=== PATIENT | female | born 1930 | race African-American/Black ===

== ENCOUNTER 2017-06-01 14:53 | Inpatient (IN) | payer MEDICARE, MEDICAID ==
[~2017-06-01] VITALS: Ht 162.6 cm; Wt 72.1 kg
[~2017-06-01 14:53] MED LIST: ACET1TAB12 PO; ATOR-2 PO; DORZ10DR9 EACHEYE; FURO-152 PO; ISOS60TA4 PO; LORA10TA7 PO; LOSA100T14 PO; NIFE60TA64 PO; NOVOLOG SUBCUT; NVLG73 SQ; STOOL SOFTENER PO; TRAM50TA3 PO
[2017-06-01] MEDS ORDERED: ASPIRIN 81MG TABLET PO STA (16:12)
[2017-06-01 16:48] LABS: BASOPHILS % 0.3 % (0.0-2.0); EOSINOPHILS % 2.3 % (0.0-5.0); HEMATOCRIT. 33.6 % (36.0-48.0); HEMOGLOBIN. 10.8 g/dL (12.0-16.0); LYMPHOCYTES % 29.2 % (20.0-50.0); MEAN CORPUSCULAR HEMOGLOBIN 28.2 pg (28.0-32.0); MEAN CORPUSCULAR VOLUME 87.2 fL (81.0-99.0); MEAN PLATELET VOLUME 10.2 fl (7.4-10.4); NEUTROPHILS % 58.2 % (40.0-76.0); PLATELET 129 x1000/uL (130-400); RED BLOOD CELL COUNT 3.85 mill/uL (4.2-5.4); RED CELL DISTRIBUTION WIDTH 15.7 % (11.6-14.6)
[2017-06-01 16:55] LABS: CHLORIDE 106 mEq/L (98-107)
[2017-06-01 16:57] LABS: CARBON DIOXIDE 24 mEq/L (21-32); D-DIMER 1.56 mg/L FEU (<0.50); INR 2.5; PARTIAL THROMBOPLASTIN TIME 37.8 sec (23.4-31.0); PROTHROMBIN TIME 26.1 sec (9.4-11.6)
[2017-06-01 17:03] LABS: TROPONIN I < 0.02 ng/mL (0.00-0.04)
[2017-06-01] MEDS ORDERED: ENOXAPARIN 80MG/0.8ML SYR SUBCUT ONE (21:30)
[2017-06-01 22:34] VITALS: BP 180/67
[2017-06-01 22:35] VITALS: BP 180/67
[2017-06-01] MEDS ORDERED: LORATADINE 10MG TABLET PO PRN (23:00)
[2017-06-01] MEDS ORDERED: ENOXAPARIN 40MG/0.4ML SYR SUBCUT SCH (23:00)
[2017-06-01] MEDS ORDERED: LORAZEPAM 2MG/ML CPJ IV PRN (23:00)
[2017-06-01] MEDS ORDERED: DEXTROSE 50% WATER 50ML SYRINGE IV PRN (23:15)
[2017-06-01] MEDS ORDERED: ACETAMINOPHEN WITH CODEINE 300/30MG TABLET PO PRN (23:15)
[2017-06-01] MEDS: SODIUM CHLORIDE 0.9% 1,000 ML IV SCH (23:43)
[2017-06-02] VITALS: BP 178/65
[2017-06-02] MEDS: CLONIDINE 0.1MG TABLET PO PRN (00:09)
[2017-06-02] MEDS: MORPHINE SULFATE 4 MG/ML CPJ (NOT FOR IM USE) IV PRN ×2 (00:09→20:10)
[2017-06-02] MEDS: ONDANSETRON HCL 4MG/2ML VIAL IV PRN (00:17)
[2017-06-02 04:00] VITALS: BP 143/51
[2017-06-02] MEDS: BLOOD SUGAR DIAGNOSTIC STRIP TEST SCH ×4 (07:40→20:18)
[2017-06-02 08:00] VITALS: BP 128/50
[2017-06-02 08:09] LABS: CREATINE KINASE MB FRACTION 2.6 ng/mL (0.5-3.6); TROPONIN I 0.03 ng/mL (0.00-0.04)
[2017-06-02] MEDS: INSULIN LISPRO 100 UNITS/ML SUBCUT SCH ×4 (08:58→20:19)
[2017-06-02] MEDS: FUROSEMIDE 20MG TABLET PO SCH (08:58)
[2017-06-02] MEDS: ISOSORBIDE MONONITRATE 60MG TABLET SR 24HR PO SCH (08:59)
[2017-06-02] MEDS: MULTIVITAMINS,THER W-MINERALS TABLET PO SCH (08:59)
[2017-06-02] MEDS: THIAMINE HCL 100MG TABLET PO SCH (09:00)
[2017-06-02] MEDS: ASPIRIN 81MG EC TABLET PO SCH (09:00)
[2017-06-02] MEDS ORDERED: DORZOLAM/TIMOLOL 2.23/0.68% OPHTH DROPS 10ML EACHEYE SCH (09:00)
[2017-06-02] MEDS: NIFEDIPINE XL 60MG TAB PO SCH (09:00)
[2017-06-02] MEDS: DORZOLAMIDE 2% OPHTH 10 ML BOTTLE EACHEYE SCH ×2 (09:58→20:13)
[2017-06-02] MEDS: TIMOLOL MALEATE 0.5% OPHTH DROPS 5ML EACHEYE SCH ×2 (09:58→20:13)
[2017-06-02] MEDS: LOSARTAN POTASSIUM 100 MG TABLET PO SCH (10:04)
[2017-06-02 12:00] VITALS: BP 159/61
[2017-06-02 12:38] LABS: CARBON DIOXIDE 27 mEq/L (21-32); CHLORIDE 107 mEq/L (98-107)
[2017-06-02 16:00] VITALS: BP 166/48
[2017-06-02 16:15] LABS: CREATINE KINASE 118 IU/L (26-192); CREATINE KINASE MB FRACTION 2.4 ng/mL (0.5-3.6); TROPONIN I < 0.02 ng/mL (0.00-0.04)
[2017-06-02] MEDS: SODIUM CHLORIDE 0.9% 1,000 ML IV SCH (19:00)
[2017-06-02 20:00] VITALS: BP 163/57
[2017-06-02] MEDS: ATORVASTATIN CALCIUM 40MG TABLET PO SCH (20:13)
[2017-06-03] VITALS: BP 140/58
[2017-06-03 04:00] VITALS: BP 126/65
[2017-06-03] MEDS: BLOOD SUGAR DIAGNOSTIC STRIP TEST SCH ×4 (06:40→20:56)
[2017-06-03] MEDS: MORPHINE SULFATE 4 MG/ML CPJ (NOT FOR IM USE) IV PRN (06:46)
[2017-06-03 08:00] VITALS: BP 209/96
[2017-06-03] MEDS: INSULIN LISPRO 100 UNITS/ML SUBCUT SCH ×4 (08:10→22:57)
[2017-06-03] MEDS: DORZOLAMIDE 2% OPHTH 10 ML BOTTLE EACHEYE SCH ×2 (09:17→20:46)
[2017-06-03] MEDS: TIMOLOL MALEATE 0.5% OPHTH DROPS 5ML EACHEYE SCH ×2 (09:17→20:46)
[2017-06-03] MEDS: NIFEDIPINE XL 60MG TAB PO SCH (09:18)
[2017-06-03] MEDS: ASPIRIN 81MG EC TABLET PO SCH (09:19)
[2017-06-03] MEDS: LOSARTAN POTASSIUM 100 MG TABLET PO SCH (09:19)
[2017-06-03] MEDS: THIAMINE HCL 100MG TABLET PO SCH (09:19)
[2017-06-03] MEDS: MULTIVITAMINS,THER W-MINERALS TABLET PO SCH (09:19)
[2017-06-03] MEDS: FUROSEMIDE 20MG TABLET PO SCH (09:19)
[2017-06-03] MEDS: ISOSORBIDE MONONITRATE 60MG TABLET SR 24HR PO SCH (09:19)
[2017-06-03 12:00] VITALS: BP 178/64
[2017-06-03 12:02] LABS: CLARITY URINE CLEAR (CLEAR); COLOR URINE YELLOW (YELLOW); GLUCOSE URINE NEGATIVE (NEGATIVE); KETONES URINE NEGATIVE (NEGATIVE); LEUKOCYTE ESTERASE URINE TRACE (NEGATIVE); NITRITE URINE NEGATIVE (NEGATIVE); OCCULT BLOOD URINE TRACE (NEGATIVE); PH URINE 6.5 (4.5-8.0); PROTEIN URINE NEGATIVE (NEGATIVE); SPECIFIC GRAVITY URINE 1.013 (1.005-1.030); UROBILINOGEN URINE 0.2 E.U./dL (0.2-1.0)
[2017-06-03] MEDS: HYDRALAZINE HCL 50MG TABLET PO SCH ×2 (13:00→20:46)
[2017-06-03 13:03] LABS: T4 FREE 0.93 ng/dL (0.76-1.46)
[2017-06-03] MEDS: SODIUM CHLORIDE 0.9% 1,000 ML IV SCH ×2 (15:00→18:42)
[2017-06-03 16:00] VITALS: BP 143/82
[2017-06-03 16:08] LABS: CREATINE KINASE MB FRACTION 3.5 ng/mL (0.5-3.6); TROPONIN I 0.22 ng/mL (0.00-0.04)
[2017-06-03 20:00] VITALS: BP 147/83
[2017-06-03] MEDS: METOPROLOL TARTRATE 25MG TABLET PO SCH (20:46)
[2017-06-03] MEDS: ATORVASTATIN CALCIUM 40MG TABLET PO SCH (20:49)
[2017-06-03 23:35] LABS: CREATINE KINASE MB FRACTION 2.9 ng/mL (0.5-3.6); TROPONIN I 0.2 ng/mL (0.00-0.04)
[2017-06-04] VITALS: BP 143/69
[2017-06-04 04:00] VITALS: BP 157/62
[2017-06-04] MEDS: MORPHINE SULFATE 4 MG/ML CPJ (NOT FOR IM USE) IV PRN (05:21)
[2017-06-04] MEDS: HYDRALAZINE HCL 50MG TABLET PO SCH ×2 (05:21→13:22)
[2017-06-04 06:07] LABS: BASOPHILS % 0.4 % (0.0-2.0); EOSINOPHILS % 2.5 % (0.0-5.0); HEMATOCRIT. 35.2 % (36.0-48.0); HEMOGLOBIN. 11.7 g/dL (12.0-16.0); LYMPHOCYTES % 26.2 % (20.0-50.0); MEAN CORPUSCULAR HEMOGLOBIN 28.8 pg (28.0-32.0); MEAN PLATELET VOLUME 9.3 fl (7.4-10.4); MONOCYTES % 12.8 % (2.0-8.0); NEUTROPHILS % 58.1 % (40.0-76.0); PLATELET 119 x1000/uL (130-400); RED BLOOD CELL COUNT 4.04 mill/uL (4.2-5.4); RED CELL DISTRIBUTION WIDTH 15.6 % (11.6-14.6)
[2017-06-04 07:26] LABS: CREATINE KINASE MB FRACTION 2.8 ng/mL (0.5-3.6); TROPONIN I 0.12 ng/mL (0.00-0.04)
[2017-06-04] MEDS: BLOOD SUGAR DIAGNOSTIC STRIP TEST SCH ×4 (07:28→21:08)
[2017-06-04 07:55] LABS: PHOSPHORUS 2.1 mg/dL (2.5-4.9)
[2017-06-04 08:00] VITALS: BP 200/86
[2017-06-04] MEDS: INSULIN LISPRO 100 UNITS/ML SUBCUT SCH ×4 (08:10→21:15)
[2017-06-04] MEDS: FUROSEMIDE 20MG TABLET PO SCH (08:58)
[2017-06-04] MEDS: ASPIRIN 81MG EC TABLET PO SCH (08:58)
[2017-06-04] MEDS: NIFEDIPINE XL 60MG TAB PO SCH (08:59)
[2017-06-04] MEDS: LOSARTAN POTASSIUM 100 MG TABLET PO SCH (08:59)
[2017-06-04] MEDS: MULTIVITAMINS,THER W-MINERALS TABLET PO SCH (08:59)
[2017-06-04] MEDS: THIAMINE HCL 100MG TABLET PO SCH (08:59)
[2017-06-04] MEDS: METOPROLOL TARTRATE 25MG TABLET PO SCH (09:09)
[2017-06-04] MEDS: DORZOLAMIDE 2% OPHTH 10 ML BOTTLE EACHEYE SCH ×2 (10:34→21:07)
[2017-06-04] MEDS: TIMOLOL MALEATE 0.5% OPHTH DROPS 5ML EACHEYE SCH ×2 (10:34→21:07)
[2017-06-04] MEDS: ONDANSETRON HCL 4MG/2ML VIAL IV PRN (11:29)
[2017-06-04 12:00] VITALS: BP 150/80
[2017-06-04 16:00] VITALS: BP 164/74
[2017-06-04] MEDS: CLONIDINE 0.1MG TABLET PO PRN (18:40)
[2017-06-04] MEDS: TRAMADOL 50MG TABLET PO PRN (19:46)
[2017-06-04 20:00] VITALS: BP 199/94
[2017-06-04] MEDS ORDERED: ACETAMINOPHEN 325MG TABLET PO PRN (20:45)
[2017-06-04] MEDS: ATORVASTATIN CALCIUM 40MG TABLET PO SCH (21:07)
[2017-06-04] MEDS: METOPROLOL TARTRATE 50MG TABLET PO SCH (21:07)
[2017-06-04] MEDS: HYDRALAZINE HCL 100MG TABLET PO SCH (21:07)
[2017-06-05] VITALS: BP 99/46
[2017-06-05 04:00] VITALS: BP 142/58
[2017-06-05] MEDS: HYDRALAZINE HCL 100MG TABLET PO SCH ×2 (06:38→13:25)
[2017-06-05] MEDS: SODIUM CHLORIDE 0.9% 1,000 ML IV SCH (06:42)
[2017-06-05] MEDS: CLONIDINE 0.1MG TABLET PO PRN (08:22)
[2017-06-05] MEDS: METOPROLOL TARTRATE 50MG TABLET PO SCH (08:23)
[2017-06-05] MEDS: MULTIVITAMINS,THER W-MINERALS TABLET PO SCH (08:23)
[2017-06-05] MEDS: THIAMINE HCL 100MG TABLET PO SCH (08:23)
[2017-06-05] MEDS: TRAMADOL 50MG TABLET PO PRN (08:24)
[2017-06-05] MEDS: NIFEDIPINE XL 60MG TAB PO SCH (08:24)
[2017-06-05] MEDS: FUROSEMIDE 20MG TABLET PO SCH (08:25)
[2017-06-05] MEDS: LOSARTAN POTASSIUM 100 MG TABLET PO SCH (08:25)
[2017-06-05] MEDS: INSULIN LISPRO 100 UNITS/ML SUBCUT SCH ×2 (08:28→13:34)
[2017-06-05] MEDS: BLOOD SUGAR DIAGNOSTIC STRIP TEST SCH ×2 (08:31→13:15)
[2017-06-05] MEDS: ASPIRIN 81MG EC TABLET PO SCH (08:37)
[2017-06-05 08:40] VITALS: BP 187/73
[2017-06-05] MEDS: TIMOLOL MALEATE 0.5% OPHTH DROPS 5ML EACHEYE SCH (08:52)
[2017-06-05] MEDS: DORZOLAMIDE 2% OPHTH 10 ML BOTTLE EACHEYE SCH (08:52)
[2017-06-05 12:00] VITALS: BP 135/56
[2017-06-05 14:28] VITALS: BP 135/56
[2017-06-05] MEDS ORDERED: METOPROLOL TARTRATE 100MG TABLET PO SCH (21:00)
[2017-06-05] MEDS ORDERED: NIFEDIPINE XL 60MG TAB PO SCH (21:00)
== END 2017-06-05 15:00 | disposition home or self-care (01) | DRG 198 ==
LOC: ER 14:53 → 7WST 19:18 → EDBEDREQTM 19:21 → EDBEDREQ 19:21 → ENRESERV 19:30
PROVIDERS: ADMIT Internal Medicine Nephrology; ATTEND Internal Medicine Nephrology
DX: I25.119 Atherosclerotic heart disease of native coronary artery with unspecified angina pectoris (principal); N17.9 Acute kidney failure, unspecified; E44.0 Moderate protein-calorie malnutrition; E11.9 Type 2 diabetes mellitus without complications; I48.0 Paroxysmal atrial fibrillation; E78.5 Hyperlipidemia, unspecified; I10 Essential (primary) hypertension; I25.2 Old myocardial infarction; E78.00 Pure hypercholesterolemia, unspecified; I35.0 Nonrheumatic aortic (valve) stenosis; Z79.01 Long term (current) use of anticoagulants; Z91.041 Radiographic dye allergy status; Z95.1 Presence of aortocoronary bypass graft; Z79.899 Other long term (current) drug therapy; Z79.4 Long term (current) use of insulin; Z68.27 Body mass index [BMI] 27.0-27.9, adult
CPT/HCPCS: 36415; 71010; 78582; 80048; 80053; 80061; 81001; 82550; 82553; 82962; 83036; 83690; 83735; 83880; 84100; 84439; 84443; 84484; 85025; 85379; 85610; 85730; 93005; 93306; 93970; 96372; 99285; A9558; J1650; J1815; J2270; J2405; J7030

== ENCOUNTER 2018-07-04 03:00 | Inpatient (IN) | payer MEDICARE, MEDICAID ==
[~2018-07-04] VITALS: Ht 167.6 cm; Wt 74.0 kg
[~2018-07-04 03:00] MED LIST changes: -NOVOLOG SUBCUT; -STOOL SOFTENER PO
[2018-07-04] MEDS ORDERED: NITROGLYCERIN OINT 1GM/INCH UDPKT TD ONE (03:15)
[2018-07-04 03:39] LABS: BASOPHILS % 0.7 % (0.0-2.0); EOSINOPHILS % 2.6 % (0.0-5.0); HEMATOCRIT. 33.4 % (36.0-48.0); HEMOGLOBIN. 10.7 g/dL (12.0-16.0); LYMPHOCYTES % 24.9 % (20.0-50.0); MEAN CORPUSCULAR HEMOGLOBIN 27.3 pg (28.0-32.0); MEAN CORPUSCULAR VOLUME 85.5 fL (81.0-99.0); MEAN PLATELET VOLUME 9.4 fl (7.4-10.4); MONOCYTES % 7.8 % (2.0-8.0); PLATELET 179 x1000/uL (130-400); RED BLOOD CELL COUNT 3.91 mill/uL (4.2-5.4)
[2018-07-04 03:40] LABS: CHLORIDE 108 mEq/L (98-107)
[2018-07-04 06:23] LABS: BG BASE EXCESS -1.2 mmol/L (-2.0-2.0); BG BILEVEL POS AIRWAY PRESSURE 15/5; BG CARBOXYHEMOGLOBIN 0.5 % (0.5-1.5); BG DEOXYHEMOGLOBIN 0.5 % (0.0-5.0); BG FRACTION INSPIRED OXYGEN 60; BG METHEMOGLOBIN 0.3 % (0.0-1.5); BG OXYGEN SATURATION 99.5 % (92.0-98.5); BG OXYHEMOGLOBIN 98.7 % (94.0-97.0); BG PCO2 48.8 mmHg (35.0-45.0); BG PH 7.328 (7.350-7.450); BG PO2 294.8 mmHg (75.0-100.0); BG PRESSURE SUPPORT 10; BG SAMPLE SITE LEFT RADIAL; BG TOTAL HEMOGLOBIN 10.7 g/dL (12.0-18.0); BG VENT MODE MASK - BIPAP; BG VENT RATE 18 set
[2018-07-04] MEDS ORDERED: DOCUSATE SODIUM 100MG CAPSULE PO PRN (07:00)
[2018-07-04] MEDS ORDERED: GUAIFENESIN 200MG/10ML SUGAR FREE UDC PO PRN (07:00)
[2018-07-04] MEDS ORDERED: LORAZEPAM 2MG/ML CPJ IV PRN (07:00)
[2018-07-04] MEDS ORDERED: IPRATROPIUM/ALBUTEROL 0.5-3(2.5)MG/3ML NEB INH PRN (07:00)
[2018-07-04] MEDS ORDERED: ACETAMINOPHEN 325MG TABLET PO PRN (07:00)
[2018-07-04] MEDS ORDERED: ENOXAPARIN 40MG/0.4ML SYR SUBCUT SCH (07:00)
[2018-07-04] MEDS ORDERED: MAGNESIUM/ALUMINUM HYDROXIDE/SIMETHICONE 30ML UDC PO PRN (07:00)
[2018-07-04] MEDS ORDERED: NA PHOS,M-B/NA PHOS,DI-BA ENEMA 118ML PR PRN (07:00)
[2018-07-04] MEDS ORDERED: DIPHENHYDRAMINE 50MG/ML VIAL IV PRN (07:00)
[2018-07-04] MEDS ORDERED: ONDANSETRON HCL 4MG/2ML INJ IV PRN (07:00)
[2018-07-04] MEDS: CLONIDINE 0.1MG TABLET PO PRN (10:40)
[2018-07-04] MEDS: HYDRALAZINE HCL 50MG TABLET PO SCH ×2 (14:00→21:09)
[2018-07-04 16:40] VITALS: BP 132/67
[2018-07-04 17:58] VITALS: BP 132/67
[2018-07-04] MEDS ORDERED: TRAV2.5D EACHEYE (18:10)
[2018-07-04] MEDS ORDERED: WARF6TAB48 MT (18:11)
[2018-07-04] MEDS ORDERED: DEXTROSE 50% WATER 50ML SYRINGE IV PRN (18:15)
[2018-07-04] MEDS ORDERED: INFLUENZA VIRUS VACCINE(AFLURIA) 0.5ML SYR IM ONE (18:15)
[2018-07-04] MEDS: ASPIRIN 81MG EC TABLET PO SCH (18:48)
[2018-07-04] MEDS: FUROSEMIDE 40MG/4ML VIAL IV SCH (18:48)
[2018-07-04 20:00] VITALS: BP 150/52
[2018-07-04] MEDS ORDERED: ENOXAPARIN 30MG/0.3ML SYR SUBCUT SCH (21:00)
[2018-07-04] MEDS: HYDROCODONE/ACETAMINOPHEN 5/325MG TABLET PO PRN (21:09)
[2018-07-04] MEDS: INSULIN LISPRO 100 UNITS/ML SUBCUT SCH (21:10)
[2018-07-04] MEDS: BLOOD SUGAR DIAGNOSTIC STRIP TEST SCH (21:10)
[2018-07-04 21:21] LABS: CREATINE KINASE MB FRACTION 2.3 ng/mL (0.5-3.6)
[2018-07-04] MEDS ORDERED: ENOXAPARIN 60MG/0.6ML SYR SUBCUT SCH (23:00)
[2018-07-04 23:41] LABS: *AMPHETAMINES SCREEN URINE NEGATIVE (NEGATIVE); *BARBITURATES SCREEN URINE NEGATIVE (NEGATIVE); *BENZODIAZEPINES SCREEN URINE NEGATIVE (NEGATIVE); *COCAINE SCREEN URINE NEGATIVE (NEGATIVE); METHADONE URINE SCREEN NEGATIVE (NEGATIVE); OPIATES URINE SCREEN NEGATIVE (NEGATIVE)
[2018-07-04 23:42] LABS: CANNABINOID URINE SCREEN NEGATIVE (NEGATIVE); PHENCYCLIDINE URINE SCREEN NEGATIVE (NEGATIVE)
[2018-07-05 00:01] VITALS: BP 176/72
[2018-07-05] MEDS: CLONIDINE 0.1MG TABLET PO PRN (00:08)
[2018-07-05 01:06] LABS: CREATINE KINASE MB FRACTION 2.3 ng/mL (0.5-3.6)
[2018-07-05] MEDS: IPRATROPIUM/ALBUTEROL 0.5-3(2.5)MG/3ML NEB HHN SCH ×4 (02:39→20:40)
[2018-07-05] MEDS: BUDESONIDE 0.5MG/2ML NEB HHN SCH ×2 (02:39→09:50)
[2018-07-05 04:00] VITALS: BP 162/77
[2018-07-05] MEDS: HYDRALAZINE HCL 50MG TABLET PO SCH ×3 (05:39→21:37)
[2018-07-05] MEDS: BLOOD SUGAR DIAGNOSTIC STRIP TEST SCH ×4 (06:25→21:38)
[2018-07-05] MEDS: HYDROCODONE/ACETAMINOPHEN 5/325MG TABLET PO PRN ×2 (07:28→14:19)
[2018-07-05 08:00] VITALS: BP 117/55
[2018-07-05] MEDS ORDERED: ENOXAPARIN 80MG/0.8ML SYR SUBCUT SCH (09:00)
[2018-07-05] MEDS: ASPIRIN 81MG EC TABLET PO SCH (09:38)
[2018-07-05] MEDS: FUROSEMIDE 40MG/4ML VIAL IV SCH (09:38)
[2018-07-05] MEDS: INSULIN LISPRO 100 UNITS/ML SUBCUT SCH ×4 (09:40→21:40)
[2018-07-05 10:26] LABS: INR 2.6; PROTHROMBIN TIME 25.6 sec (9.1-11.1)
[2018-07-05 10:27] LABS: BASOPHILS % 0.5 % (0.0-2.0); EOSINOPHILS % 2.1 % (0.0-5.0); HEMATOCRIT. 30.2 % (36.0-48.0); HEMOGLOBIN. 9.8 g/dL (12.0-16.0); LYMPHOCYTES % 19.5 % (20.0-50.0); MEAN CORPUSCULAR HEMOGLOBIN 27.7 pg (28.0-32.0); MEAN PLATELET VOLUME 9.6 fl (7.4-10.4); MONOCYTES % 10.3 % (2.0-8.0); NEUTROPHILS % 67.6 % (40.0-76.0); PLATELET 158 x1000/uL (130-400); RED BLOOD CELL COUNT 3.56 mill/uL (4.2-5.4); RED CELL DISTRIBUTION WIDTH 17.8 % (11.6-14.6)
[2018-07-05 10:48] LABS: CHLORIDE 107 mEq/L (98-107)
[2018-07-05 11:03] LABS: HDL CHOLESTEROL 48 mg/dL (40-59); LDL CHOLESTEROL 126 mg/dL (5-100)
[2018-07-05 12:00] VITALS: BP 125/45
[2018-07-05] MEDS ORDERED: SILVER SULFADIAZINE 1% CREAM 25GM TOP NR (13:00)
[2018-07-05 16:00] VITALS: BP 143/72
[2018-07-05] MEDS ORDERED: NITROGLYCERIN OINT 1GM/INCH UDPKT TD SCH (16:30)
[2018-07-05] MEDS: MORPHINE SULFATE 4 MG/ML CPJ (NOT FOR IM USE) IV PRN ×2 (17:04→22:27)
[2018-07-05] MEDS: NEOMY SULF/BACITRAC ZN/POLY OINT 28GM TOP SCH ×2 (17:05→21:39)
[2018-07-05] MEDS ORDERED: WARFARIN SODIUM 2MG TABLET PO SCH (18:00)
[2018-07-05 20:00] VITALS: BP 135/72
[2018-07-05] MEDS ORDERED: ENOXAPARIN 30MG/0.3ML SYR SUBCUT SCH (21:00)
[2018-07-06] VITALS: BP 188/83
[2018-07-06] MEDS ORDERED: AMLODIPINE 5MG TABLET PO NR (02:00)
[2018-07-06] MEDS ORDERED: CLONIDINE 0.1MG TABLET PO NR (02:00)
[2018-07-06] MEDS: IPRATROPIUM/ALBUTEROL 0.5-3(2.5)MG/3ML NEB HHN SCH ×3 (02:03→08:03)
[2018-07-06 04:00] VITALS: BP 188/80
[2018-07-06] MEDS: HYDRALAZINE HCL 50MG TABLET PO SCH ×2 (05:20→14:04)
[2018-07-06] MEDS: BLOOD SUGAR DIAGNOSTIC STRIP TEST SCH ×2 (06:26→11:31)
[2018-07-06 08:00] VITALS: BP 119/67
[2018-07-06] MEDS: BUDESONIDE 0.5MG/2ML NEB HHN SCH (08:03)
[2018-07-06] MEDS: ASPIRIN 81MG EC TABLET PO SCH (08:46)
[2018-07-06] MEDS: NEOMY SULF/BACITRAC ZN/POLY OINT 28GM TOP SCH (08:46)
[2018-07-06] MEDS: INSULIN LISPRO 100 UNITS/ML SUBCUT SCH ×2 (08:47→14:07)
[2018-07-06] MEDS ORDERED: AMLODIPINE 5MG TABLET PO SCH (09:00)
[2018-07-06 10:21] LABS: BASOPHILS % 0.5 % (0.0-2.0); EOSINOPHILS % 2.2 % (0.0-5.0); HEMATOCRIT. 32.5 % (36.0-48.0); HEMOGLOBIN. 10.5 g/dL (12.0-16.0); LYMPHOCYTES % 29.3 % (20.0-50.0); MEAN CORPUSCULAR HEMOGLOBIN 27.7 pg (28.0-32.0); MEAN CORPUSCULAR VOLUME 85.8 fL (81.0-99.0); MEAN PLATELET VOLUME 9.5 fl (7.4-10.4); MONOCYTES % 11.8 % (2.0-8.0); NEUTROPHILS % 56.2 % (40.0-76.0); PLATELET 167 x1000/uL (130-400); RED BLOOD CELL COUNT 3.79 mill/uL (4.2-5.4); RED CELL DISTRIBUTION WIDTH 17.6 % (11.6-14.6)
[2018-07-06 10:23] LABS: INR 1.7; PROTHROMBIN TIME 16.7 sec (9.1-11.1)
[2018-07-06 11:50] VITALS: BP 131/64
[2018-07-06 12:00] VITALS: BP 131/64
[2018-07-06] MEDS ORDERED: METOPROLOL TARTRATE 25MG TABLET PO SCH (21:00)
== END 2018-07-06 14:48 | disposition home or self-care (01) | DRG 133 ==
LOC: ER 03:00 → 6WST 05:16 → EDBEDREQTM 05:34 → EDBEDREQ 05:34 → ENRESERV 11:36 → CANRESERV 11:36 → ENRESERV 14:59
PROVIDERS: ADMIT Internal Medicine; ATTEND Internal Medicine
PROC: 5A09357 Assistance with Respiratory Ventilation, Less than 24 Consecutive Hours, Continuous Positive Airway Pressure (ICD-10-PCS; principal; 2018-07-04)
DX: J96.00 Acute respiratory failure, unspecified whether with hypoxia or hypercapnia (principal); I50.33 Acute on chronic diastolic (congestive) heart failure; E11.42 Type 2 diabetes mellitus with diabetic polyneuropathy; E11.51 Type 2 diabetes mellitus with diabetic peripheral angiopathy without gangrene; I44.1 Atrioventricular block, second degree; E11.622 Type 2 diabetes mellitus with other skin ulcer; I11.0 Hypertensive heart disease with heart failure; D50.9 Iron deficiency anemia, unspecified; E11.65 Type 2 diabetes mellitus with hyperglycemia; E66.9 Obesity, unspecified; I70.201 Unspecified atherosclerosis of native arteries of extremities, right leg; E78.00 Pure hypercholesterolemia, unspecified; E78.5 Hyperlipidemia, unspecified; H40.9 Unspecified glaucoma; I25.10 Atherosclerotic heart disease of native coronary artery without angina pectoris; I35.0 Nonrheumatic aortic (valve) stenosis; J44.9 Chronic obstructive pulmonary disease, unspecified; L97.919 Non-pressure chronic ulcer of unspecified part of right lower leg with unspecified severity; N28.9 Disorder of kidney and ureter, unspecified; S00.01XA Abrasion of scalp, initial encounter; Z79.01 Long term (current) use of anticoagulants; Z79.4 Long term (current) use of insulin; Z82.49 Family history of ischemic heart disease and other diseases of the circulatory system; Z83.3 Family history of diabetes mellitus; Z86.718 Personal history of other venous thrombosis and embolism; Z87.891 Personal history of nicotine dependence; Z91.041 Radiographic dye allergy status; Z95.1 Presence of aortocoronary bypass graft; Z68.26 Body mass index [BMI] 26.0-26.9, adult
CPT/HCPCS: 36415; 36600; 71045; 78580; 80048; 80061; 80305; 82375; 82550; 82553; 82805; 82962; 83036; 83735; 83880; 84439; 84443; 84484; 85379; 93005; 93306; 93923; 93970; 99285; A6261; J1650; J1815; J1940; J2270; J7620; J7626

== ENCOUNTER 2018-07-13 06:03 | Inpatient (IN) | payer MEDICARE, MEDICAID ==
[~2018-07-13] VITALS: Ht 167.6 cm; Wt 75.7 kg
[~2018-07-13 06:03] MED LIST changes: +TRAV2.5D EACHEYE; +WARF6TAB48 MT
[2018-07-13 06:51] LABS: HEMATOCRIT. 33.7 % (36.0-48.0); HEMOGLOBIN. 10.7 g/dL (12.0-16.0); MEAN CORPUSCULAR HEMOGLOBIN 27.4 pg (28.0-32.0); MEAN CORPUSCULAR VOLUME 86.4 fL (81.0-99.0); PLATELET 191 x1000/uL (130-400); RED CELL DISTRIBUTION WIDTH 17.4 % (11.6-14.6)
[2018-07-13 06:57] LABS: CHLORIDE 107 mEq/L (98-107)
[2018-07-13 08:03] LABS: PLATELET ESTIMATE NORMAL
[2018-07-13] MEDS ORDERED: IPRATROPIUM BROMIDE (0.02%) 0.5MG/2.5ML NEB HHN SCH (08:10)
[2018-07-13] MEDS ORDERED: METHYLPREDNISOLONE SOD SUCC 125 MG/2 ML VIAL IV SCH (08:10)
[2018-07-13] MEDS ORDERED: ALBUTEROL (0.083%) 2.5MG/3ML NEB HHN SCH (08:10)
[2018-07-13] MEDS ORDERED: FUROSEMIDE 40MG/4ML VIAL IV SCH (08:15)
[2018-07-13] MEDS ORDERED: DIPHENHYDRAMINE 50MG/ML VIAL IV PRN (09:15)
[2018-07-13] MEDS ORDERED: ONDANSETRON HCL 4MG/2ML INJ IV PRN (09:15)
[2018-07-13] MEDS ORDERED: ACETAMINOPHEN 325MG TABLET PO PRN (09:15)
[2018-07-13] MEDS ORDERED: DOCUSATE SODIUM 100MG CAPSULE PO PRN (09:15)
[2018-07-13] MEDS ORDERED: GUAIFENESIN 200MG/10ML SUGAR FREE UDC PO PRN (09:15)
[2018-07-13] MEDS ORDERED: LORAZEPAM 2MG/ML CPJ IV PRN (09:15)
[2018-07-13] MEDS ORDERED: MAGNESIUM/ALUMINUM HYDROXIDE/SIMETHICONE 30ML UDC PO PRN (09:15)
[2018-07-13] MEDS ORDERED: NA PHOS,M-B/NA PHOS,DI-BA ENEMA 118ML PR PRN (09:15)
[2018-07-13] MEDS ORDERED: IPRATROPIUM/ALBUTEROL 0.5-3(2.5)MG/3ML NEB INH PRN (09:15)
[2018-07-13] MEDS: CLONIDINE 0.1MG TABLET PO PRN (11:00)
[2018-07-13] MEDS ORDERED: HYDROMORPHONE HCL/PF 2MG/ML CPJ IV PRN (20:00)
[2018-07-13 20:50] VITALS: BP 155/69
[2018-07-13] MEDS: ENOXAPARIN 40MG/0.4ML SYR SUBCUT SCH (21:51)
[2018-07-13] MEDS: IPRATROPIUM/ALBUTEROL 0.5-3(2.5)MG/3ML NEB HHN SCH (22:25)
[2018-07-14] VITALS: BP 160/67
[2018-07-14] MEDS: IPRATROPIUM/ALBUTEROL 0.5-3(2.5)MG/3ML NEB HHN SCH ×3 (02:56→21:13)
[2018-07-14 04:00] VITALS: BP 151/69
[2018-07-14 06:57] LABS: BASOPHILS % 0.4 % (0.0-2.0); EOSINOPHILS % 0.5 % (0.0-5.0); HEMATOCRIT. 28.6 % (36.0-48.0); HEMOGLOBIN. 9.2 g/dL (12.0-16.0); LYMPHOCYTES % 21.3 % (20.0-50.0); MEAN CORPUSCULAR HEMOGLOBIN 27.7 pg (28.0-32.0); MEAN PLATELET VOLUME 9.6 fl (7.4-10.4); MONOCYTES % 10.5 % (2.0-8.0); NEUTROPHILS % 67.3 % (40.0-76.0); PLATELET 160 x1000/uL (130-400); RED BLOOD CELL COUNT 3.32 mill/uL (4.2-5.4); RED CELL DISTRIBUTION WIDTH 17.3 % (11.6-14.6)
[2018-07-14 06:58] LABS: CHLORIDE 109 mEq/L (98-107)
[2018-07-14 07:14] LABS: HDL CHOLESTEROL 43 mg/dL (40-59); LDL CHOLESTEROL 118 mg/dL (5-100)
[2018-07-14] MEDS: HYDROCODONE/ACETAMINOPHEN 5/325MG TABLET PO PRN (07:14)
[2018-07-14 08:00] VITALS: BP 151/69
[2018-07-14] MEDS: BUDESONIDE 0.5MG/2ML NEB HHN SCH ×3 (08:00→21:12)
[2018-07-14] MEDS ORDERED: DEXTROSE 50% WATER 50ML SYRINGE IV PRN (09:30)
[2018-07-14] MEDS: ASPIRIN 81MG EC TABLET PO SCH (09:40)
[2018-07-14] MEDS: FUROSEMIDE 40MG/4ML VIAL IV SCH (09:40)
[2018-07-14 12:00] VITALS: BP 136/65
[2018-07-14] MEDS: BLOOD SUGAR DIAGNOSTIC STRIP TEST SCH ×2 (12:23→20:41)
[2018-07-14] MEDS: INSULIN LISPRO 100 UNITS/ML SUBCUT SCH ×3 (12:23→20:41)
[2018-07-14] MEDS: CLONIDINE 0.1MG TABLET PO PRN (19:42)
[2018-07-14 20:00] VITALS: BP 212/97
[2018-07-14] MEDS: ENOXAPARIN 40MG/0.4ML SYR SUBCUT SCH (20:40)
[2018-07-15] VITALS: BP 188/84
[2018-07-15] MEDS: IPRATROPIUM/ALBUTEROL 0.5-3(2.5)MG/3ML NEB HHN SCH ×4 (01:45→20:50)
[2018-07-15 04:00] VITALS: BP 176/75
[2018-07-15] MEDS: CLONIDINE 0.1MG TABLET PO PRN (04:47)
[2018-07-15] MEDS: BLOOD SUGAR DIAGNOSTIC STRIP TEST SCH ×4 (06:10→20:33)
[2018-07-15] MEDS: INSULIN LISPRO 100 UNITS/ML SUBCUT SCH ×4 (06:10→20:32)
[2018-07-15 08:00] VITALS: BP 150/69
[2018-07-15] MEDS: BUDESONIDE 0.5MG/2ML NEB HHN SCH ×2 (08:04→20:50)
[2018-07-15] MEDS: LOSARTAN POTASSIUM 50 MG TABLET PO SCH (08:10)
[2018-07-15] MEDS: ASPIRIN 81MG EC TABLET PO SCH (08:10)
[2018-07-15] MEDS: FUROSEMIDE 40MG/4ML VIAL IV SCH (08:10)
[2018-07-15] MEDS: CARVEDILOL 3.125 MG TABLET PO SCH ×2 (08:11→20:31)
[2018-07-15 09:52] LABS: BASOPHILS % 0.3 % (0.0-2.0); EOSINOPHILS % 1.6 % (0.0-5.0); HEMATOCRIT. 31.7 % (36.0-48.0); LYMPHOCYTES % 26.8 % (20.0-50.0); MEAN CORPUSCULAR HEMOGLOBIN 27.4 pg (28.0-32.0); MEAN CORPUSCULAR VOLUME 86.3 fL (81.0-99.0); MEAN PLATELET VOLUME 10.1 fl (7.4-10.4); MONOCYTES % 10.9 % (2.0-8.0); NEUTROPHILS % 60.4 % (40.0-76.0); PLATELET 168 x1000/uL (130-400); RED BLOOD CELL COUNT 3.67 mill/uL (4.2-5.4); RED CELL DISTRIBUTION WIDTH 17.7 % (11.6-14.6)
[2018-07-15 12:26] VITALS: BP 116/45
[2018-07-15 16:38] VITALS: BP 134/72
[2018-07-15 20:00] VITALS: BP 152/61
[2018-07-15] MEDS: ENOXAPARIN 40MG/0.4ML SYR SUBCUT SCH (20:31)
[2018-07-16] VITALS: BP 122/67
[2018-07-16] MEDS: IPRATROPIUM/ALBUTEROL 0.5-3(2.5)MG/3ML NEB HHN SCH ×4 (03:36→19:53)
[2018-07-16 04:00] VITALS: BP 143/77
[2018-07-16] MEDS: BLOOD SUGAR DIAGNOSTIC STRIP TEST SCH ×4 (06:26→20:54)
[2018-07-16] MEDS: INSULIN LISPRO 100 UNITS/ML SUBCUT SCH ×4 (06:26→20:53)
[2018-07-16 08:00] VITALS: BP 196/77
[2018-07-16] MEDS: CARVEDILOL 3.125 MG TABLET PO SCH ×2 (08:14→20:53)
[2018-07-16] MEDS: ASPIRIN 81MG EC TABLET PO SCH (08:14)
[2018-07-16] MEDS: LOSARTAN POTASSIUM 50 MG TABLET PO SCH (08:14)
[2018-07-16] MEDS: FUROSEMIDE 40MG/4ML VIAL IV SCH (08:14)
[2018-07-16] MEDS: BUDESONIDE 0.5MG/2ML NEB HHN SCH ×2 (08:29→19:52)
[2018-07-16] MEDS: HYDROCODONE/ACETAMINOPHEN 5/325MG TABLET PO PRN (11:45)
[2018-07-16 12:00] VITALS: BP 150/70
[2018-07-16 20:00] VITALS: BP 173/70
[2018-07-16] MEDS: ENOXAPARIN 40MG/0.4ML SYR SUBCUT SCH (20:54)
[2018-07-17] VITALS (9 sets, daily range): BP systolic 114–188; BP diastolic 54–75
[2018-07-17] MEDS: IPRATROPIUM/ALBUTEROL 0.5-3(2.5)MG/3ML NEB HHN SCH ×4 (01:33→14:16)
[2018-07-17] MEDS: BLOOD SUGAR DIAGNOSTIC STRIP TEST SCH ×2 (07:01→21:00)
[2018-07-17] MEDS: INSULIN LISPRO 100 UNITS/ML SUBCUT SCH ×3 (07:01→23:13)
[2018-07-17] MEDS: ASPIRIN 81MG EC TABLET PO SCH (09:11)
[2018-07-17] MEDS: LOSARTAN POTASSIUM 50 MG TABLET PO SCH (09:11)
[2018-07-17] MEDS: FUROSEMIDE 40MG/4ML VIAL IV SCH (09:12)
[2018-07-17] MEDS: CARVEDILOL 3.125 MG TABLET PO SCH ×3 (09:12→21:24)
[2018-07-17] MEDS: BUDESONIDE 0.5MG/2ML NEB HHN SCH (09:40)
[2018-07-17] MEDS: CLONIDINE 0.1MG TABLET PO PRN (14:25)
[2018-07-17] MEDS: ENOXAPARIN 40MG/0.4ML SYR SUBCUT SCH (21:27)
[2018-07-18] VITALS: BP 126/54
[2018-07-18 04:00] VITALS: BP 149/65
[2018-07-18] MEDS: INSULIN LISPRO 100 UNITS/ML SUBCUT SCH (06:43)
[2018-07-18 08:00] VITALS: BP 141/73
[2018-07-18] MEDS: LOSARTAN POTASSIUM 50 MG TABLET PO SCH (10:01)
[2018-07-18] MEDS: ASPIRIN 81MG EC TABLET PO SCH (10:01)
[2018-07-18] MEDS: FUROSEMIDE 40MG/4ML VIAL IV SCH (10:01)
[2018-07-18] MEDS: CARVEDILOL 3.125 MG TABLET PO SCH (10:01)
[2018-07-18 11:43] VITALS: BP 138/73
[2018-07-18 12:00] VITALS: BP 156/65
== END 2018-07-18 12:35 | disposition home or self-care (01) | DRG 140 ==
LOC: ER 07:06 → 8WST 07:09 → EDBEDREQ 08:31 → ENRESERV 19:31
PROVIDERS: ADMIT Internal Medicine; ATTEND Internal Medicine
DX: J44.1 Chronic obstructive pulmonary disease with (acute) exacerbation (principal); J96.00 Acute respiratory failure, unspecified whether with hypoxia or hypercapnia; I50.33 Acute on chronic diastolic (congestive) heart failure; E46 Unspecified protein-calorie malnutrition; E11.51 Type 2 diabetes mellitus with diabetic peripheral angiopathy without gangrene; I48.0 Paroxysmal atrial fibrillation; M48.02 Spinal stenosis, cervical region; G95.20 Unspecified cord compression; E78.5 Hyperlipidemia, unspecified; M47.892 Other spondylosis, cervical region; I25.10 Atherosclerotic heart disease of native coronary artery without angina pectoris; I11.0 Hypertensive heart disease with heart failure; I35.0 Nonrheumatic aortic (valve) stenosis; Z95.1 Presence of aortocoronary bypass graft; I25.2 Old myocardial infarction; Z68.27 Body mass index [BMI] 27.0-27.9, adult; Z91.048 Other nonmedicinal substance allergy status; Z79.899 Other long term (current) drug therapy
CPT/HCPCS: 36415; 71045; 72141; 80048; 80061; 82962; 83880; 84439; 84443; 84484; 93005; 94618; 94640; 96374; 96375; 97116; 97162; 97166; 97530; 99291; J1170; J1650; J1815; J1940; J2405; J2930; J7611; J7620; J7626

== ENCOUNTER 2018-08-19 10:36 | Inpatient (IN) | payer MEDICARE, MEDICAID ==
[~2018-08-19] VITALS: Ht 167.6 cm; Wt 77.8 kg
[2018-08-19] MEDS ORDERED: ASPIRIN 81MG TABLET PO ONE (12:00)
[2018-08-19 12:34] LABS: BASOPHILS % 0.6 % (0.0-2.0); HEMOGLOBIN. 10.1 g/dL (12.0-16.0); LYMPHOCYTES % 30.5 % (20.0-50.0); MEAN CORPUSCULAR HEMOGLOBIN 27.2 pg (28.0-32.0); MEAN CORPUSCULAR VOLUME 86.3 fL (81.0-99.0); MEAN PLATELET VOLUME 8.9 fl (7.4-10.4); MONOCYTES % 14.8 % (2.0-8.0); NEUTROPHILS % 51.1 % (40.0-76.0); PLATELET 149 x1000/uL (130-400); RED BLOOD CELL COUNT 3.71 mill/uL (4.2-5.4); RED CELL DISTRIBUTION WIDTH 16.3 % (11.6-14.6)
[2018-08-19 12:35] LABS: CHLORIDE 109 mEq/L (98-107)
[2018-08-19 12:38] LABS: PARTIAL THROMBOPLASTIN TIME 26.1 sec (23.4-31.0); PROTHROMBIN TIME 9.9 sec (9.1-11.1)
[2018-08-19] MEDS ORDERED: FUROSEMIDE 20MG/2ML VIAL IVP ONE (14:00)
[2018-08-19 14:12] LABS: CLARITY URINE CLEAR (CLEAR); COLOR URINE YELLOW (YELLOW); KETONES URINE NEGATIVE (NEGATIVE); LEUKOCYTE ESTERASE URINE TRACE (NEGATIVE); NITRITE URINE NEGATIVE (NEGATIVE); OCCULT BLOOD URINE NEGATIVE (NEGATIVE); PH URINE 5.5 (4.5-8.0); PROTEIN URINE NEGATIVE (NEGATIVE); SPECIFIC GRAVITY URINE 1.013 (1.005-1.030); UROBILINOGEN URINE 0.2 E.U./dL (0.2-1.0)
[2018-08-19] MEDS ORDERED: ACETAMINOPHEN 650MG SUPP PR PRN (18:15)
[2018-08-19] MEDS ORDERED: DOCUSATE SODIUM 100MG CAPSULE PO PRN (18:15)
[2018-08-19] MEDS ORDERED: IPRATROPIUM/ALBUTEROL 0.5-3(2.5)MG/3ML NEB INH PRN (18:15)
[2018-08-19] MEDS ORDERED: ONDANSETRON HCL 4MG/2ML INJ IV PRN (18:15)
[2018-08-19] MEDS ORDERED: DIPHENHYDRAMINE 50MG/ML VIAL IV PRN (18:15)
[2018-08-19] MEDS ORDERED: ACETAMINOPHEN 325MG TABLET PO PRN (18:15)
[2018-08-19] MEDS ORDERED: MAGNESIUM/ALUMINUM HYDROXIDE/SIMETHICONE 30ML UDC PO PRN (18:15)
[2018-08-19] MEDS ORDERED: NA PHOS,M-B/NA PHOS,DI-BA ENEMA 118ML PR PRN (18:15)
[2018-08-19] MEDS ORDERED: ACETAMINOPHEN 650MG/20.3ML UDC GT PRN (18:15)
[2018-08-19] MEDS ORDERED: HYDROCODONE/ACETAMINOPHEN 10/325MG TABLET PO PRN (18:15)
[2018-08-19] MEDS ORDERED: HYDROCODONE/ACETAMINOPHEN 5/325MG TABLET PO PRN (18:15)
[2018-08-19] MEDS ORDERED: GUAIFENESIN 200MG/10ML SUGAR FREE UDC PO PRN (18:15)
[2018-08-19 19:00] VITALS: BP 187/69
[2018-08-19] MEDS: CLONIDINE 0.1MG TABLET PO PRN (19:14)
[2018-08-19 20:00] VITALS: BP 197/93
[2018-08-19] MEDS: AMLODIPINE 10MG TABLET PO SCH (20:29)
[2018-08-19] MEDS: ENOXAPARIN 40MG/0.4ML SYR SUBCUT SCH (20:30)
[2018-08-19] MEDS: SODIUM CHLORIDE 0.9% INJ 3ML FLUSH IVF SCH (21:30)
[2018-08-20] VITALS (8 sets, daily range): BP systolic 128–160; BP diastolic 55–72
[2018-08-20 00:59] LABS: CREATINE KINASE MB FRACTION 2.5 ng/mL (0.5-3.6)
[2018-08-20] MEDS: IPRATROPIUM/ALBUTEROL 0.5-3(2.5)MG/3ML NEB INH SCH ×4 (02:33→20:56)
[2018-08-20] MEDS: SODIUM CHLORIDE 0.9% INJ 3ML FLUSH IVF SCH ×3 (06:14→21:11)
[2018-08-20 06:56] LABS: HEMATOCRIT. 31.4 % (36.0-48.0); HEMOGLOBIN. 10.1 g/dL (12.0-16.0); MEAN CORPUSCULAR HEMOGLOBIN 27.5 pg (28.0-32.0); MEAN CORPUSCULAR VOLUME 85.8 fL (81.0-99.0); MEAN PLATELET VOLUME 9.1 fl (7.4-10.4); PLATELET 150 x1000/uL (130-400); RED BLOOD CELL COUNT 3.66 mill/uL (4.2-5.4); RED CELL DISTRIBUTION WIDTH 16.5 % (11.6-14.6)
[2018-08-20 07:13] LABS: CHLORIDE 108 mEq/L (98-107)
[2018-08-20 07:22] LABS: LDL CHOLESTEROL 157 mg/dL (5-100)
[2018-08-20 07:23] LABS: CREATINE KINASE 70 IU/L (26-192); HDL CHOLESTEROL 45 mg/dL (40-59)
[2018-08-20 07:28] LABS: CREATINE KINASE MB FRACTION 1.9 ng/mL (0.5-3.6)
[2018-08-20] MEDS: ASPIRIN 81MG EC TABLET PO SCH (08:30)
[2018-08-20] MEDS: AMLODIPINE 10MG TABLET PO SCH (08:30)
[2018-08-20 09:32] LABS: PLATELET ESTIMATE NORMAL
[2018-08-20 11:05] LABS: *AMPHETAMINES SCREEN URINE NEGATIVE (NEGATIVE); *BARBITURATES SCREEN URINE NEGATIVE (NEGATIVE); *BENZODIAZEPINES SCREEN URINE NEGATIVE (NEGATIVE)
[2018-08-20 11:06] LABS: *COCAINE SCREEN URINE NEGATIVE (NEGATIVE); CANNABINOID URINE SCREEN NEGATIVE (NEGATIVE); METHADONE URINE SCREEN NEGATIVE (NEGATIVE); OPIATES URINE SCREEN NEGATIVE (NEGATIVE); PHENCYCLIDINE URINE SCREEN NEGATIVE (NEGATIVE)
[2018-08-20] MEDS ORDERED: MEDICATION NOT ON FORMULARY EA (Furosemide (Lasix) 20 MG) PO SCH (13:00)
[2018-08-20] MEDS ORDERED: FUROSEMIDE 20MG TABLET PO SCH (13:02)
[2018-08-20] MEDS ORDERED: DORZOLAM/TIMOLOL 2.23/0.68% OPHTH DROPS 10ML EACHEYE SCH (13:30)
[2018-08-20] MEDS: DORZOLAMIDE 2% OPHTH 10 ML BOTTLE EACHEYE SCH ×2 (14:00→20:35)
[2018-08-20] MEDS: TIMOLOL MALEATE 0.5% OPHTH DROPS 5ML EACHEYE SCH ×2 (15:42→20:35)
[2018-08-20 17:22] LABS: CREATINE KINASE MB FRACTION 1.7 ng/mL (0.5-3.6)
[2018-08-20 17:25] LABS: T4 FREE 0.84 ng/dL (0.76-1.46)
[2018-08-20] MEDS: WARFARIN SODIUM 3MG TABLET PO SCH (18:34)
[2018-08-20] MEDS ORDERED: DEXTROSE 50% WATER 50ML SYRINGE IV PRN (18:45)
[2018-08-20] MEDS: ENOXAPARIN 40MG/0.4ML SYR SUBCUT SCH (20:34)
[2018-08-20] MEDS: LATANOPROST 0.005% OPHTH DROPS 2.5ML EACHEYE SCH (20:35)
[2018-08-20] MEDS: BLOOD SUGAR DIAGNOSTIC STRIP TEST SCH (20:36)
[2018-08-20] MEDS: INSULIN LISPRO 100 UNITS/ML SUBCUT SCH (20:36)
[2018-08-20] MEDS: ATORVASTATIN CALCIUM 40MG TABLET PO SCH (20:36)
[2018-08-20] MEDS ORDERED: MEDICATION NOT ON FORMULARY EA (Atorvastatin Calcium 80 MG) PO SCH (21:00)
[2018-08-20] MEDS ORDERED: MEDICATION NOT ON FORMULARY EA (Travoprost (Travatan Z) 1 DROP) EACHEYE SCH (21:00)
[2018-08-20] MEDS ORDERED: WARFARIN SODIUM MT SCH (21:00)
[2018-08-21] VITALS (10 sets, daily range): BP systolic 127–182; BP diastolic 55–79
[2018-08-21] MEDS: CLONIDINE 0.1MG TABLET PO PRN ×2 (00:57→18:27)
[2018-08-21 01:00] LABS: CREATINE KINASE MB FRACTION 1.5 ng/mL (0.5-3.6)
[2018-08-21] MEDS: IPRATROPIUM/ALBUTEROL 0.5-3(2.5)MG/3ML NEB INH SCH ×4 (01:38→21:00)
[2018-08-21] MEDS: SODIUM CHLORIDE 0.9% INJ 3ML FLUSH IVF SCH ×3 (05:16→22:05)
[2018-08-21] MEDS: BLOOD SUGAR DIAGNOSTIC STRIP TEST SCH ×4 (06:51→21:00)
[2018-08-21 06:56] LABS: INR 1.1; PROTHROMBIN TIME 10.7 sec (9.1-11.1)
[2018-08-21] MEDS: INSULIN LISPRO 100 UNITS/ML SUBCUT SCH ×4 (07:12→22:04)
[2018-08-21 07:58] LABS: CREATINE KINASE MB FRACTION 1.7 ng/mL (0.5-3.6)
[2018-08-21] MEDS: DORZOLAMIDE 2% OPHTH 10 ML BOTTLE EACHEYE SCH ×2 (09:47→17:14)
[2018-08-21] MEDS: TIMOLOL MALEATE 0.5% OPHTH DROPS 5ML EACHEYE SCH ×2 (09:48→17:14)
[2018-08-21] MEDS: AMLODIPINE 10MG TABLET PO SCH (09:49)
[2018-08-21] MEDS: ASPIRIN 81MG EC TABLET PO SCH (09:49)
[2018-08-21] MEDS: WARFARIN SODIUM 3MG TABLET PO SCH (17:14)
[2018-08-21] MEDS: ATORVASTATIN CALCIUM 40MG TABLET PO SCH (21:52)
[2018-08-21] MEDS: ENOXAPARIN 80MG/0.8ML SYR SUBCUT SCH (21:54)
[2018-08-21] MEDS: LATANOPROST 0.005% OPHTH DROPS 2.5ML EACHEYE SCH (22:01)
[2018-08-22] VITALS (9 sets, daily range): BP systolic 130–162; BP diastolic 45–82
[2018-08-22] MEDS: IPRATROPIUM/ALBUTEROL 0.5-3(2.5)MG/3ML NEB INH SCH ×3 (01:02→12:40)
[2018-08-22 05:51] LABS: INR 1.1; PROTHROMBIN TIME 11.2 sec (9.1-11.1)
[2018-08-22] MEDS: BLOOD SUGAR DIAGNOSTIC STRIP TEST SCH ×3 (06:26→16:50)
[2018-08-22] MEDS: SODIUM CHLORIDE 0.9% INJ 3ML FLUSH IVF SCH ×2 (06:26→14:50)
[2018-08-22] MEDS: INSULIN LISPRO 100 UNITS/ML SUBCUT SCH ×3 (06:26→17:20)
[2018-08-22] MEDS: ENOXAPARIN 80MG/0.8ML SYR SUBCUT SCH (08:14)
[2018-08-22] MEDS: DORZOLAMIDE 2% OPHTH 10 ML BOTTLE EACHEYE SCH ×2 (08:15→17:00)
[2018-08-22] MEDS: TIMOLOL MALEATE 0.5% OPHTH DROPS 5ML EACHEYE SCH ×2 (08:15→17:00)
[2018-08-22] MEDS: ASPIRIN 81MG EC TABLET PO SCH (08:15)
[2018-08-22] MEDS: AMLODIPINE 10MG TABLET PO SCH (08:15)
[2018-08-22] MEDS ORDERED: METO-396 PO (09:32)
[2018-08-22] MEDS ORDERED: LIP40 PO (09:32)
[2018-08-22] MEDS ORDERED: ASPI-1158 PO (09:32)
== END 2018-08-22 17:16 | disposition home or self-care (01) | DRG 198 ==
LOC: ER 10:50 → 6WST 13:12 → EDBEDREQ 13:24 → ENRESERV 15:17 → CANRESERV 15:17 → ENRESERV 15:50 → 3WST 08-21 06:45
PROVIDERS: ADMIT Family Medicine; ATTEND Family Medicine
DX: R07.89 Other chest pain (principal); I25.10 Atherosclerotic heart disease of native coronary artery without angina pectoris; E11.42 Type 2 diabetes mellitus with diabetic polyneuropathy; E11.51 Type 2 diabetes mellitus with diabetic peripheral angiopathy without gangrene; D63.8 Anemia in other chronic diseases classified elsewhere; E44.1 Mild protein-calorie malnutrition; I25.2 Old myocardial infarction; I10 Essential (primary) hypertension; E78.5 Hyperlipidemia, unspecified; E11.622 Type 2 diabetes mellitus with other skin ulcer; E11.65 Type 2 diabetes mellitus with hyperglycemia; I35.0 Nonrheumatic aortic (valve) stenosis; M19.90 Unspecified osteoarthritis, unspecified site; J44.9 Chronic obstructive pulmonary disease, unspecified; L97.909 Non-pressure chronic ulcer of unspecified part of unspecified lower leg with unspecified severity; Z79.4 Long term (current) use of insulin; Z82.49 Family history of ischemic heart disease and other diseases of the circulatory system; Z87.891 Personal history of nicotine dependence; Z91.041 Radiographic dye allergy status; Z95.1 Presence of aortocoronary bypass graft; Z83.3 Family history of diabetes mellitus; Z68.27 Body mass index [BMI] 27.0-27.9, adult
CPT/HCPCS: 36415; 71045; 78580; 80061; 80305; 82550; 82553; 82962; 83036; 83735; 83880; 84439; 84443; 84484; 85379; 93005; 93306; 93970; 94640; 96374; 97162; 99291; J1650; J1815; J1940; J7620